=== PATIENT | female | born 1970 | race African-American/Black ===

== ENCOUNTER 2016-11-07 15:25 | Emergency (ER) | payer BC ==
[2016-11-07 15:42] VITALS: BP 144/91; PULSE 86; TEMP 98; BMI 28.3
[2016-11-07] MEDS ORDERED: IBUPROFEN 400 MG TABLET (FP) PO ONE ×2 (16:25→16:28)
--- NOTE | 2016-11-07 16:35 | PDOC ---
History of Present Illness - General Chief Complaint: Injury Stated Complaint: SWOLLEN MID FINGER Time Seen by Provider: 11/07/16 16:12 History Source: Patient - History of Present Illness Occurred: reports: yesterday Upper Extremity Pain Location: right: 3rd finger Method of Injury: reports: direct blow Past History - Past Medical History Allergies/Adverse Reactions: Allergies Allergy/AdvReac Type Severity Reaction Status Date / Time Cephalosporins Allergy Verified 11/07/16 15:38 Home Medications: Ambulatory Orders NK [No Known Home Medication] 05/24/16 Thyroid Disease: No - Surgical History Abdominal Surgery: Yes (umb.hernia) - Family Disease History Family Disease History: Diabetes: Mother, [place]: Grandparents (ovarian cancer) - Immunization History Td Vaccination: Yes Immunization Up to Date: Yes - Psycho/Social/Smoking Cessation Hx Anxiety: No Suicidal Ideation: No Smoking Status: No Smoking History: Never smoked Years of Tobacco Use: 0 Have you smoked in the past 12 months: No Number of Cigarettes Smoked Daily: 0 Cigars Per Day: 0 Information on smoking cessation initiated: No Hx Alcohol Use: No Drug/Substance Use Hx: No Substance Use Type: None Review of Systems - Review of Systems Musculoskeletal: Yes: Joint Pain, Joint Swelling *Physical Exam - Vital Signs Last Vital Signs Temp Pulse Resp BP Pulse Ox 98.0 F 86 18 144/91 98 11/07/16 15:39 11/07/16 15:39 11/07/16 15:39 11/07/16 15:39 11/07/16 15:39 - Physical Exam General Appearance: Yes: Appropriately Dressed. No: Apparent Distress HEENT: positive: Normal Voice Neck: positive: Supple Respiratory/Chest: negative: Respiratory Distress Extremity: positive: Tender, Swelling (to PIPJ of R 3rd finger) Integumentary: positive: Dry, Warm Neurologic: positive: Fully Oriented, Alert, Normal Mood/Affect ED Treatment Course - RADIOLOGY Radiology Studies Ordered: Category Date Time Status FINGER(S) RIGHT [RAD] Stat Radiology 11/07/16 16:24 Ordered - Medications Given in the ED: ED Medications Discontinued Medications Generic Name Dose Route Start Last Admin Trade Name Freq PRN Reason Stop Dose Admin Ibuprofen 800 mg 11/07/16 16:25 11/07/16 16:28 Motrin - PO 11/07/16 16:26 800 mg ONCE ONE Administration Medical Decision Making - Medical Decision Making 11/07/16 16:30 46 yo F, no sig hx, here w/ pain and swelling to R 3rd finger s/p injury. 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 See exam Finger injury M/l sprain -r/o fx -pain control 11/07/16 17:31 Oblique, non-displaced fx to base of middle phalanx of R 3rd digit. Finger splint placed w/ orthopedic f/u *DC/Admit/Observation/Transfer Diagnosis at time of Disposition: Finger fracture, right Qualifiers: Encounter type: initial encounter Finger: middle finger Fracture type: closed Phalanx: middle Fracture alignment: nondisplaced Qualified Code(s): S62.652A - Nondisplaced fracture of medial phalanx of right middle finger, initial encounter for closed fracture - Discharge Dispostion Disposition: HOME Condition at time of disposition: Good - Patient Instructions Printed Discharge Instructions: DI for Finger Fracture Additional Instructions: Please keep splint in place and take motrin for pain Please follow up with Dr Mccallum in 1 week - Post Discharge Activity Work/School Note: Back to Work
== END 2016-11-07 17:54 | disposition home or self-care (01) ==
LOC: JERFT 15:25
DX: S62.652A Nondisplaced fracture of middle phalanx of right middle finger, initial encounter for closed fracture (principal); W22.8XXA Striking against or struck by other objects, initial encounter; Y93.89 Activity, other specified; Y92.118 Other place in children's home and orphanage as the place of occurrence of the external cause; Y99.0 Civilian activity done for income or pay
CPT/HCPCS: 73140-TC-RT; 99281-25

== ENCOUNTER 2016-12-09 15:58 | Emergency (ER) | payer BC ==
[2016-12-09 16:04] VITALS: BP 161/101; PULSE 90; TEMP 98.1; BMI 28.3
--- NOTE | 2016-12-09 16:06 | PDOC ---
History of Present Illness - General Chief Complaint: Urinary Problem Stated Complaint: URINARY SX Time Seen by Provider: 12/09/16 16:05 History Source: Patient Exam Limitations: No Limitations - History of Present Illness Travel History: No Initial Comments: 12/09/16 16:40 46y F rpresenting with complaints of urinary frequency, hesitency and mild dysuria since yesterday. Pt denies any fever/chills, back pain, abdominal pain , vaginal discharge, vaginal bleeding. Past History - Past Medical History Allergies/Adverse Reactions: Allergies Allergy/AdvReac Type Severity Reaction Status Date / Time Cephalosporins Allergy Verified 12/09/16 16:05 Home Medications: Ambulatory Orders Nitrofurantoin Monohyd/M-Cryst [Macrobid -] 100 mg PO BID #9 capsule 12/09/16 Phenazopyridine HCl [Pyridium] 100 mg PO BID #2 tablet 12/09/16 Thyroid Disease: No - Surgical History Abdominal Surgery: Yes (umb.hernia) - Family Disease History Family Disease History: Diabetes: Mother, [place]: Grandparents (ovarian cancer) - Immunization History Td Vaccination: Yes Immunization Up to Date: Yes - Psycho/Social/Smoking Cessation Hx Anxiety: No Suicidal Ideation: No Smoking Status: No Smoking History: Never smoked Years of Tobacco Use: 0 Have you smoked in the past 12 months: No Number of Cigarettes Smoked Daily: 0 Cigars Per Day: 0 Information on smoking cessation initiated: No Hx Alcohol Use: No Drug/Substance Use Hx: No Substance Use Type: None Review of Systems - Review of Systems Able to Perform ROS?: Yes Comments:: 12/09/16 16:43 Constitutional - no reported Fever, Chills, HEENT: no reported vision changes, sore throat Respiratory: no reported cough, sob, hemoptysis Cardiac: no reported chest pain, palpitations, light headedness, leg swelling Abd/GI: no reported abd pain, nausea, vomiting, blood per rectum, melena, diarrhea : +dysuria, frequency, hesitency no reported discharge Musculskelatal - no reported back pain, joint swelling skin - no reported bruising, erythema, rash neurological: no reported headache, numbness, focal weakness, tingling, ataxia, hematologic: no reported anemia, easy bruising, easy bleeding *Physical Exam - Vital Signs Last Vital Signs Temp Pulse Resp BP Pulse Ox 98.1 F 90 18 161/101 100 12/09/16 15:58 12/09/16 15:58 12/09/16 15:58 12/09/16 15:58 12/09/16 15:58 - Physical Exam Comments: 12/09/16 16:44 GENERAL: The patient is awake, alert, and fully oriented, Nontoxic - in no acute distress. ENT: Normal voice, Moist mucous membranes. NECK: Normal range of motion, supple LUNGS: Breath sounds equal, clear to auscultation bilaterally. No wheezes, no rhonchi, no rales. HEART: Regular rate and rhythm, normal S1 and S2 without murmur, rub or gallop. ABDOMEN: Soft, nontender, normoactive bowel sounds. No guarding, no rebound. No CVA tenderness EXTREMITIES: Normal range of motion, no edema. NEUROLOGICAL: No facial assymetry, Normal speech, normal gait, moving all 4 extremities spontenously and symmetrically. Medical Decision Making - Medical Decision Making 12/09/16 16:46 suspect UTI will treat with macrobid and pyridum will dc with pmd fu return precautions were discussed I discussed the physical exam findings, ancillary test results and final diagnoses with the patient. I answered all of the patient's questions. The patient was satisfied with the care received and felt comfortable with the discharge plan and treatment plan. The patient will call their primary care physician within 24 hours to arrange follow-up and will return to the Emergency Department with any new, persistent or worsening symptoms. *DC/Admit/Observation/Transfer Diagnosis at time of Disposition: Urinary tract infection Qualifiers: Urinary tract infection type: acute cystitis Hematuria presence: with hematuria Qualified Code(s): N30.01 - Acute cystitis with hematuria - Discharge Dispostion Disposition: HOME Condition at time of disposition: Improved Admit: No - Prescriptions Prescriptions: Nitrofurantoin Monohyd/M-Cryst [Macrobid -] 100 mg PO BID #9 capsule Phenazopyridine HCl [Pyridium] 100 mg PO BID #2 tablet - Referrals Referrals: [facility] [Provider Group] - Patient Instructions Printed Discharge Instructions: DI for Urinary Tract Infection (UTI) Additional Instructions: Return to the emergency department immediately with ANY new, persistent or worsening symptoms including fever/chills, back pain, vomiting or other concerns. Take the antibiotics as prescribed. The Pyridium may turn your urine orange. You MUST call and follow up with your doctor in 4-5 days for further evaluation of your symptoms. Results were discussed with you. Please make sure your doctor reviews the results of your emergency evaluation.
[2016-12-09 16:26] LABS: URINE APPEARANCE Clear; URINE BILIRUBIN Negative (NEGATIVE); URINE BLOOD 2+ (NEGATIVE); URINE GLUCOSE (UA) Negative (NEGATIVE); URINE KETONE Negative (NEGATIVE); URINE NITRITE Negative (NEGATIVE); URINE PROTEIN Negative (NEGATIVE)
[2016-12-09 16:29] LABS: URINE COLOR YELLOW; URINE LEUK ESTERASE 2+ (NEGATIVE)
[2016-12-09] MEDS ORDERED: PHENAZOPYRIDINE HCL 100 MG TABLET (FP) PO ONE (16:42)
[2016-12-09] MEDS ORDERED: PHENAZOPYRIDINE HCL 100 MG TABLET (FP) ONE (16:45)
[2016-12-09] MEDS ORDERED: NITROFURANTOIN MACROCRYSTAL 50 MG CAPSULE (FP) PO SCH (16:45)
[2016-12-09] MEDS ORDERED: NITROFURANTOIN MACROCRYSTAL 50 MG CAPSULE (FP) ONE (16:45)
[2016-12-09 20:29] LABS: URINE BACTERIA FEW /hpf (NEGATIVE)
== END 2016-12-09 16:55 | disposition home or self-care (01) ==
LOC: FER 15:58
DX: N30.01 Acute cystitis with hematuria (principal)
CPT/HCPCS: 81003; 81015; 84703; 99282-25

== ENCOUNTER 2017-04-28 19:08 | Emergency (ER) | payer BC ==
[2017-04-28 19:16] VITALS: BP 118/84; PULSE 103; TEMP 98.3; BMI 27.8
--- NOTE | 2017-04-28 20:16 | PDOC ---
History of Present Illness - General Chief Complaint: Cold Symptoms Stated Complaint: COLD SYMPTOMS Time Seen by Provider: 04/28/17 19:23 - History of Present Illness Initial Comments: 04/28/17 20:00 CHIEF COMPLAINT: cold symptoms HISTORY OF PRESENT ILLNESS: 46 yo F with hx of HTN presents to [facility] with cough, congestion, sneezing, sore throat, and unrelated "bump on vagina." Patient states she received a flu and pneumonia shot last week and has been feeling "sick" since. Patient PAST MEDICAL HISTORY: Denies past medical history FAMILY HISTORY: Denies SOCIAL HISTORY: Denies tobacco, alcohol, illicit drug use. SURGICAL HISTORY: Denies ALLERGIES: cephalasporins REVIEW OF SYSTEMS General/Constitutional: Denies fever or chills. Denies weakness, weight change. HEENT: Denies change in vision. Denies ear pain or discharge. Denies sore throat. Cardiovascular: Denies chest pain or shortness of breath. Respiratory: Denies cough, wheezing, or hemoptysis. Gastrointestinal: Denies nausea, vomiting, diarrhea or constipation. Denies rectal bleeding. Genitourinary: Denies dysuria, frequency, or change in urination. Musculoskeletal: Denies joint or muscle swelling or pain. Denies neck or back pain. Skin and breasts: Denies rash or easy bruising. PHYSICAL EXAM General Appearance: Well-appearing, appropriately dressed. No apparent distress. HEENT: Rhinorrhea, congestion. EOMI, PERRLA. No conjunctival pallor. No photophobia, scleral icterus. Respiratory/Chest: Lungs CTAB. Cardiovascular: RRR. S1, S2. Gastrointestinal/Abdominal: Normal bowel sounds. Abdomen soft, non-distended. No tenderness or rebound tenderness. No organomegaly, pulsatile mass, guarding , hernia, hepatomegaly, splenomegaly. Musculoskeletal/Extremities: Normal inspection. FROM of all extremities, normal capillary refill. Pelvis Stable. No CVA tenderness. No tenderness to extremities, pedal edema, swelling, erythema or deformity. Integumentary: 1cm x 1 cm indurated nodule to left labia, no fluctuance, erythema, discharge. Appropriate color, dry, warm. No cyanosis, erythema, jaundice or rash Neurologic: [place] aide II-XII intact. Fully oriented, alert. Appropriate mood/affect. Motor strength 5/5. No appreciable EOM palsy, facial droop or sensory deficit. Past History - Past Medical History Allergies/Adverse Reactions: Allergies Allergy/AdvReac Type Severity Reaction Status Date / Time Cephalosporins Allergy Verified 04/28/17 19:09 Home Medications: Ambulatory Orders Hydrochlorothiazide 25 mg PO ASDIR 04/28/17 Pseudoephedrine HCl [Sudafed 12 Hour] 120 mg PO BID #14 tablet.er 04/28/17 Sulfamethoxazole/Trimethoprim [Bactrim Ds -] 1 tab PO BID #14 tablet 04/28/17 COPD: No HTN: Yes Thyroid Disease: No - Surgical History Abdominal Surgery: Yes (umb.hernia) - Family Disease History Family Disease History: Diabetes: Mother, [place]: Grandparents (ovarian cancer) - Immunization History Td Vaccination: Yes Immunization Up to Date: Yes - Suicide/Smoking/Psychosocial Hx Smoking Status: No Smoking History: Never smoked Years of Tobacco Use: 0 Have you smoked in the past 12 months: No Number of Cigarettes Smoked Daily: 0 Cigars Per Day: 0 Hx Alcohol Use: No Drug/Substance Use Hx: No Substance Use Type: None *Physical Exam - Vital Signs Last Vital Signs Temp Pulse Resp BP Pulse Ox 98.3 F 103 H 18 118/84 96 04/28/17 19:10 04/28/17 19:10 04/28/17 19:10 04/28/17 19:10 04/28/17 19:10 Medical Decision Making - Medical Decision Making 04/28/17 20:16 46 yo F with hx of HTN presents to [facility] with cough, congestion, sneezing, sore throat, and unrelated "bump on vagina." -Bactrim, warm compresses for folliculitis not drainable at this time -flu, strep swab *DC/Admit/Observation/Transfer Diagnosis at time of Disposition: Folliculitis, Viral upper respiratory illness - Discharge Dispostion Disposition: HOME Condition at time of disposition: Stable Admit: No - Prescriptions Prescriptions: Pseudoephedrine HCl [Sudafed 12 Hour] 120 mg PO BID #14 tablet.er Sulfamethoxazole/Trimethoprim [Bactrim Ds -] 1 tab PO BID #14 tablet - Referrals - Patient Instructions Printed Discharge Instructions: DI for Skin Abscess, DI for Folliculitis, DI for Viral Upper Respiratory Infection -- Adult Additional Instructions: Please take medications as prescribed. As discussed, please soak the skin infection 3-4 times daily, for at least 15 minutes each time, in warm water. If you develop fever, chills, nausea, vomiting, or diarrhea, or any new or worsening symptoms, please return to the ER. - Post Discharge Activity
== END 2017-04-28 20:30 | disposition home or self-care (01) ==
LOC: JERFT 19:08
DX: J06.9 Acute upper respiratory infection, unspecified (principal); L73.9 Follicular disorder, unspecified; I10 Essential (primary) hypertension
CPT/HCPCS: 87804; 99281-25

== ENCOUNTER 2017-05-09 23:15 | Emergency (ER) | payer BC ==
[2017-05-10 00:49] VITALS: BP 137/98; PULSE 72; TEMP 98.1; BMI 25.7
--- NOTE | 2017-05-10 02:34 | PDOC ---
History of Present Illness - General History Source: Patient Exam Limitations: No Limitations - History of Present Illness Initial Comments: 05/10/17 02:46 The patient is a 46 year old female, with a significant past medical history of pre-HTN, who presents to the emergency department with, chest pain radiating to her left arm for a few days. 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 She denies recent fevers, chills, headache or dizziness. She denies recent nausea, vomit, diarrhea or constipation. She denies recent dysuria, frequency, urgency or hematuria. She denies recent shortness of breath. Allergies: Cephalosporins Past surgical history: None reported. Social history: Nonsmoker. Denies EtOH use and recreational drug use. <Delphine Calderón - Last Filed: 05/10/17 02:45> <Layla Rios - Last Filed: 05/10/17 05:43> - General Chief Complaint: Chest Pain Stated Complaint: CHEST PAIN Time Seen by Provider: 05/10/17 00:48 Past History <Delphine Calderón - Last Filed: 05/10/17 02:45> - Past Medical History COPD: No HTN: Yes Thyroid Disease: No - Surgical History Abdominal Surgery: Yes (umb.hernia) - Family Disease History Family Disease History: Diabetes: Mother, [place]: Grandparents (ovarian cancer) - Immunization History Td Vaccination: Yes Immunization Up to Date: Yes - Suicide/Smoking/Psychosocial Hx Smoking Status: No Smoking History: Never smoked Years of Tobacco Use: 0 Have you smoked in the past 12 months: No Number of Cigarettes Smoked Daily: 0 Cigars Per Day: 0 Information on smoking cessation initiated: No Hx Alcohol Use: No Drug/Substance Use Hx: No Substance Use Type: None <Layla Rios - Last Filed: 05/10/17 05:43> - Past Medical History Allergies/Adverse Reactions: Allergies Allergy/AdvReac Type Severity Reaction Status Date / Time Cephalosporins Allergy Verified 05/10/17 00:50 Home Medications: Ambulatory Orders Hydrochlorothiazide 25 mg PO ASDIR 04/28/17 Review of Systems - Review of Systems Able to Perform ROS?: Yes Comments:: 05/10/17 02:46 GENERAL/CONSTITUTIONAL: No fever or chills. No weakness. HEAD, EYES, EARS, NOSE AND THROAT: No change in vision. No ear pain or discharge. No sore throat. CARDIOVASCULAR: +Chest pain. No shortness of breath. RESPIRATORY: No cough, wheezing, or hemoptysis. GASTROINTESTINAL: No nausea, vomiting, diarrhea or constipation. GENITOURINARY: No dysuria, frequency, or change in urination. MUSCULOSKELETAL: No joint or muscle swelling or pain. No neck or back pain. SKIN: No rash EXTREMITIES: +Left arm pain. NEUROLOGIC: No headache, vertigo, loss of consciousness, or change in strength/ sensation. ENDOCRINE: No increased thirst. No abnormal weight change. HEMATOLOGIC/LYMPHATIC: No anemia, easy bleeding, or history of blood clots. ALLERGIC/IMMUNOLOGIC: No hives or skin allergy. All Other Systems: Reviewed and Negative <Delphine Calderón - Last Filed: 05/10/17 02:45> *Physical Exam - Vital Signs Last Vital Signs Temp Pulse Resp BP Pulse Ox 98.1 F 72 18 137/98 100 05/10/17 00:40 05/10/17 00:40 05/10/17 00:40 05/10/17 00:40 05/10/17 00:40 - Physical Exam Comments: 05/10/17 02:46 GENERAL: Awake, alert, and fully oriented, in no acute distress HEAD: No signs of trauma EYES: PERRLA, EOMI, sclera anicteric, conjunctiva clear ENT: Auricles normal inspection, hearing grossly normal, nares patent, oropharynx clear without exudates. Moist mucosa NECK: Normal ROM, supple, no lymphadenopathy, JVD, or masses LUNGS: Breath sounds equal, clear to auscultation bilaterally. No wheezes, and no crackles HEART: Regular rate and rhythm, normal S1 and S2, no murmurs, rubs or gallops ABDOMEN: Soft, nontender, normoactive bowel sounds. No guarding, no rebound. No masses EXTREMITIES: Normal range of motion, no edema. No clubbing or cyanosis. No cords, erythema, or tenderness NEUROLOGICAL: Cranial nerves II through XII grossly intact. Normal speech, normal gait SKIN: Warm, Dry, normal turgor, no rashes or lesions noted. <Delphine Calderón - Last Filed: 05/10/17 02:45> - Vital Signs Last Vital Signs Temp Pulse Resp BP Pulse Ox 98.1 F 72 18 137/98 100 05/10/17 00:40 05/10/17 00:40 05/10/17 00:40 05/10/17 00:40 05/10/17 00:40 <Layla Rios - Last Filed: 05/10/17 05:43> ED Treatment Course - LABORATORY CBC & Chemistry Diagram: 05/10/17 02:39 05/10/17 02:39 <Layla Rios - Last Filed: 05/10/17 05:43> Medical Decision Making - Medical Decision Making 05/10/17 05:41 Pt comes with HTN; States that she has left arm pain that has been ongoing for a couple of days. Exam normal; labs normal; pt's BP is not ihgh enough for me to change her regimen at this time. Pt has no other complaints. She will follow with cardiology to consider other options/meds for treating her BP. <Layla Rios - Last Filed: 05/10/17 05:43> *DC/Admit/Observation/Transfer - Attestations Scribe Attestion: 05/10/17 02:46 Documentation prepared by Delphine Calderón, acting as medical secretary receptionist for Layla Rios MD. <Delphine Calderón - Last Filed: 05/10/17 02:45> - Discharge Dispostion Admit: No <Layla Rios - Last Filed: 05/10/17 05:43> Diagnosis at time of Disposition: Atypical chest pain - Discharge Dispostion Disposition: HOME Condition at time of disposition: Stable - Patient Instructions Printed Discharge Instructions: DI for Atypical Chest Pain
[2017-05-10 02:50] LABS: BASO % 0.5 % (0-2.0); EOS % 2.1 % (0-4.5); HEMATOCRIT 39.1 % (32.4-45.2); HEMOGLOBIN 13.1 GM/dL (10.7-15.3); LYMPH % 44.1 % (8-40); MCH 29.8 pg (25.7-33.7); MCHC 33.5 g/dl (32.0-36.0); MEAN CELL VOLUME 88.8 fl (80-96); MEAN PLT VOLUME 10.5 fl (7.5-11.1); MONO % 5.2 % (3.8-10.2); NEUT % 48.1 % (42.8-82.8); PLATELET COUNT 105 K/MM3 (134-434); RDW 13.7 % (11.6-15.6); WHITE BLOOD COUNT 7.2 K/mm3 (4.0-10.0)
[2017-05-10 03:13] LABS: ALBUMIN 3.5 g/dl (3.4-5.0); ANION GAP 7 (8-16); BILIRUBIN,TOTAL 0.4 mg/dL (0.2-1.0); BLOOD UREA NITROGEN 17 mg/dL (7-18); CALCIUM 8.5 mg/dL (8.5-10.1); CHLORIDE 105 mmol/L (98-107); CO2 27 mmol/L (21-32); CREATININE 0.9 mg/dL (0.55-1.02); GLUCOSE,RANDOM 96 mg/dL (74-106); POTASSIUM 4.2 mmol/L (3.5-5.1); SGOT/AST 14 U/L (15-37); SGPT/ALT 18 U/L (12-78); SODIUM 139 mmol/L (136-145); TOT PROT 6.6 g/dl (6.4-8.2)
[2017-05-10 03:15] LABS: ALK PHOS 59 U/L (45-117)
--- NOTE | 2017-05-13 15:14 | EKG ---
Test Reason : Blood Pressure : / mmHG Vent. Rate : 074 BPM Atrial Rate : 074 BPM P-R Int : 162 ms QRS Dur : 064 ms QT Int : 370 ms P-R-T Axes : 058 025 040 degrees QTc Int : 410 ms NORMAL SINUS RHYTHM NORMAL ECG WHEN COMPARED WITH ECG OF 01-APR-2016 15:44, NO SIGNIFICANT CHANGE WAS FOUND Confirmed by Mina Cross MD ([id number]) on 05/13/2017 3:14:03 PM Referred By: Confirmed By:Mina Cross MD
== END 2017-05-10 03:51 | disposition home or self-care (01) ==
LOC: JER 23:15
DX: R07.89 Other chest pain (principal); I10 Essential (primary) hypertension
CPT/HCPCS: 36415; 80053; 82550; 84484; 85025; 93005; 93010; 99283-25

== ENCOUNTER 2017-11-30 12:31 | Emergency (ER) | payer BC ==
[2017-11-30 12:46] VITALS: BP 131/81; PULSE 103; TEMP 98.9
[2017-11-30 12:48] VITALS: BMI 27.4
--- NOTE | 2017-11-30 12:58 | PDOC ---
History of Present Illness - General Chief Complaint: Pain Stated Complaint: ABDOMINAL PAIN Time Seen by Provider: 11/30/17 12:58 - History of Present Illness Initial Comments: 11/30/17 13:51 Risa Chong is a 47yo woman with a PMH of borderline HTN, umbilical hernia s/p repair, recent breast augmentation on 11/09/17 who presents complaining of diarrhea for one week. She reports that she normally has about 2 bowel movements per week. However, starting last Friday, she reports that she has had a bowel movement an hour after she eats, every time she eats. She has been having multiple bowel movements per day. She has been able to eat normally and continued to drink plenty of water. She has not had any sick contacts or diet changes recently. She denies nausea, vomiting, fever/chills, malaise, body aches, or abdominal pain. Ms Chong did have a 3 day course of antibiotics following her recent breast augmentation but was not hospitalized following the surgery. She reports that she was initially not going to come in for evaluation, but decided to come in to day after looking up diarrhea online. She was concerned that she might have a problem with her enzymes or become dehydrated. Ms Chong did not attempt any treatment at home or see her primary physician during the week. Past History - Past Medical History Allergies/Adverse Reactions: Allergies Allergy/AdvReac Type Severity Reaction Status Date / Time Cephalosporins Allergy Verified 11/30/17 15:57 hydrochlorothiazide Allergy Verified 11/30/17 15:57 Home Medications: Ambulatory Orders Amlodipine Besylate 5 mg PO DAILY 10/20/17 Loperamide HCl [Imodium -] 2 mg PO Q8H PRN #21 capsule 11/30/17 COPD: No HTN: Yes Thyroid Disease: No - Surgical History Abdominal Surgery: Yes (umb.hernia) - Family Disease History Family Disease History: Diabetes: Mother, CA: Grandparents (ovarian cancer) - Immunization History Td Vaccination: Yes Immunization Up to Date: Yes - Suicide/Smoking/Psychosocial Hx Smoking Status: No Smoking History: Never smoked Years of Tobacco Use: 0 Have you smoked in the past 12 months: No Number of Cigarettes Smoked Daily: 0 Cigars Per Day: 0 Hx Alcohol Use: No Drug/Substance Use Hx: No Substance Use Type: None Review of Systems - Review of Systems Comments:: General: No fevers, no chills, no weight or appetite change, no malaise HEENT: No changes in vision, no changes in hearing, no congestion, no sore throat CV: No chest pain, no palpitations, no LE edema Pulm: No SOB, no cough, no wheezing GI: See HPI : No frequency, no urgency, no dysuria Musc: No back pain, no joint swelling, no recent injury Skin: No rash, no lesions, no erythema Endo: No excessive thirst, no heat/cold intolerance Heme: No unusual bruising or bleeding, no swollen glands Neuro: No syncope, no numbness/tingling, no focal weakness Vasc: No claudication Psych: No recent change in mood, no SI or HI *Physical Exam - Vital Signs Last Vital Signs Temp Pulse Resp BP Pulse Ox 98.9 F 103 H 20 131/81 99 11/30/17 12:36 11/30/17 12:36 11/30/17 12:36 11/30/17 12:36 11/30/17 12:36 - Physical Exam Comments: General: Comfortable, no acute distress HEENT: PERRL, EOMI, MMM, voice normal, normal neck ROM, no LAD Cards: RRR, no murmur appreciated Pulm: Comfortable on room air, clear to auscultation bilaterally Abd: Soft, nontender, nondistended : No CVA tenderness Ext: Atraumatic. No LE edema. ROM intact. Strength 5/5 and equal bilaterally Vasc: Extremities WWP. Palpable radial and pedal pulses bilaterally Skin: Multiple tatoos. Well healling surgical incisions. No rashes, lesions, bruises noted Neuro: A&Ox3, CN grossly intact, normal speech, motor/sensory grossly intact and symmetric Psych: Mood appropriate to situation ED Treatment Course - LABORATORY CBC & Chemistry Diagram: 11/30/17 13:30 11/30/17 13:30 Medical Decision Making - Medical Decision Making 11/30/17 13:58 Risa Chong is a 47yo woman with a history of HTN who presented to the ED today complaining of multiple soft stools daily for the past week. She reports that she has a bowel movement about an hour after every time she eats, which is much different than her typical twice weekly bowel movements. She did have a recent surgical procedure with 3 days of antibiotics but did not have a hospital stay that would increase her risk for cdiff. She has not had any s/s of systemic infection including fever, chills, body aches, malaise. She has not had any nausea or vomiting, and she has been able to eat and drink normally throughout the week. Her physical exam was entirely benign. - CBC, CMP, lipase, stool O&P, stool culture, cdiff sent - Immodium for symptom relief - NS bolus 1L for hydration, tachycardia 11/30/17 17:21 - Reassessed. HR down to ~85 after fluid bolus - Feels well. Able to eat [employer] without any difficulty - Most likely viral enteritis. Discussed following up with primary physician or at the resident clinic at [facility] to get culture results. Discussed with Dr Moss. *DC/Admit/Observation/Transfer Diagnosis at time of Disposition: Viral enteritis - Discharge Dispostion Disposition: HOME - Referrals Referrals: Shon Tavera MD [Staff Physician] - - Patient Instructions Printed Discharge Instructions: Diarrhea (Alternative Therapy), DI for Diarrhea and Traveler's Diarrhea -- Adult Additional Instructions: Discharge Instructions: - You were seen in the ED for diarrhea for the past week - You were rehydrated and had blood tests completed. The tests indicated that you might have a mild infection. Usually, diarrheal infections are viral. However, some tests were sent to determine if there is unusual bacteria in your stool. These tests will not be completed for several days. You will need to call the hospital to get the results of your stool tests. - You have been referred to the resident clinic at [facility]. You can make an appointment for clinic to get your test results. If you would prefer to see your regular physician, make sure that you call for the test results. - Please see the attached information on diarrhea for additional information - Post Discharge Activity
[2017-11-30 13:42] LABS: HEMOGLOBIN 12.9 GM/dL (10.7-15.3); MCH 29.2 pg (25.7-33.7); MEAN CELL VOLUME 88.6 fl (80-96); MEAN PLT VOLUME 8.8 fl (7.5-11.1); PLATELET COUNT 196 K/MM3 (134-434); WHITE BLOOD COUNT 11.6 K/mm3 (4.0-10.0)
[2017-11-30 14:04] LABS: ALBUMIN 3.7 g/dl (3.4-5.0); ANION GAP 5 (8-16); BLOOD UREA NITROGEN 11 mg/dL (7-18); CALCIUM 9.1 mg/dL (8.5-10.1); CHLORIDE 104 mmol/L (98-107); CO2 30 mmol/L (21-32); CREATININE 0.9 mg/dL (0.55-1.02); GLUCOSE,RANDOM 80 mg/dL (74-106); LIPASE 117 U/L (73-393); POTASSIUM 3.9 mmol/L (3.5-5.1); SGOT/AST 18 U/L (15-37); SGPT/ALT 21 U/L (12-78); SODIUM 139 mmol/L (136-145)
[2017-11-30 14:05] LABS: ALK PHOS 53 U/L (45-117); BILIRUBIN,TOTAL 0.9 mg/dL (0.2-1.0)
[2017-11-30] MEDS ORDERED: LOPERAMIDE HCL 2 MG CAPSULE PO ONE (14:57)
[2017-11-30] MEDS ORDERED: SODIUM CHLORIDE 0.9% 500 ML INFUS.BAG IV ONE (14:57)
[2017-11-30] MEDS ORDERED: LOPERAMIDE HCL 2 MG CAPSULE ONE (15:28)
--- NOTE | 2017-11-30 16:02 | PDOC ---
Attending Attestation - Resident Resident Name: SarithaVal - ED Attending Attestation I have performed the following: I have examined & evaluated the patient, The case was reviewed & discussed with the resident, I agree w/resident's findings & plan, Exceptions are as noted - HPI HPI: 11/30/17 15:58 47 yo F with no PMH presents to ED with diarrhea x 1 week. Pt reports watery brown stool several times a day. Denies F/C. Denies N/V. States that she has some mild cramping in her lower abdomen when she has to move her bowels but denies any pain currently. Pt denies any recent travel. States that she had breast augmentation 3 weeks ago and took abx for 5 days but has not been on any abx recently. - Physicial Exam PE: 11/30/17 16:01 "GENERAL: Awake, alert, and fully oriented, in no acute distress. HEAD: No signs of trauma EYES: PERRLA, EOMI, sclera anicteric, conjunctiva clear ENT: Auricles normal inspection, hearing grossly normal, nares patent, oropharynx clear without exudates. Moist mucosa NECK: Nontender, no stepoffs, Normal ROM, supple, no lymphadenopathy, JVD, or masses LUNGS: Breath sounds equal, clear to auscultation bilaterally. No wheezes, and no crackles HEART: Regular rate and rhythm, normal S1 and S2, no murmurs, rubs or gallops ABDOMEN: Soft, nontender, normoactive bowel sounds. No guarding, no rebound. No masses EXTREMITIES: Normal range of motion, no edema. No clubbing or cyanosis. No cords, erythema, or tenderness NEUROLOGICAL: Cranial nerves II through XII intact. 5/5 strength and sensation in all extremities, Normal speech, normal gait, normal cerebellar function SKIN: Warm, Dry, normal turgor, no rashes or lesions noted." - Medical Decision Making 11/30/17 16:01 47 F with diarrhea x 7 days. Abdomen benign. Pt with mild tachycardia in ED, likely 2/2 volume depletion. - Labs - Stool studies - IVF, imodium 11/30/17 17:26 Labs wnl Stool studies sent Repeat HR after 1L NS now 80s Pt is well appearing, with normal vitals. Clinically stable for DC at this time. I discussed the physical exam findings, ancillary test results and final diagnoses with the patient. I answered all of the patient's questions. The patient was satisfied with the care received and felt comfortable with the discharge plan and treatment plan. The patient agrees to follow up with the primary care physician within 24-72 hours.
--- NOTE | 2017-12-02 13:10 | PDOC ---
Patient Follow-up (Call Back) - Post ED Follow - Up Chief Complaint: Diarrhea Disposition at time of original discharge: HOME Reason for Call Back: Abnwl. Microbiology Signs/Symptoms Improved: No (Patient continues to have bloody diarrhea) - Disposition Additional Instructions/Notes: Stool culture prelim pos for non lactose fermenting gnb. Explained to patient that speciation is still pending. Rx Flagyl/Cipro in meantime. Counseled patient that she may need re-evaluation including CT if symptoms not improving. She verbalizes understanding.
== END 2017-11-30 17:47 | disposition home or self-care (01) ==
LOC: JER 12:31
DX: A08.4 Viral intestinal infection, unspecified (principal); B97.89 Other viral agents as the cause of diseases classified elsewhere; I10 Essential (primary) hypertension; Z98.890 Other specified postprocedural states
CPT/HCPCS: 36415; 80053; 83690; 85027; 87045; 87046; 87177; 87186; 87493; 99283-25

== ENCOUNTER 2018-07-06 08:02 | Emergency (ER) | payer BC ==
[2018-07-06 08:32] VITALS: BP 125/79; PULSE 78; TEMP 98.1; BMI 29.6
[2018-07-06 09:07] LABS: URINE APPEARANCE CLEAR; URINE BILIRUBIN NEGATIVE (<2.0 mg/dL); URINE COLOR YELLOW; URINE GLUCOSE (UA) NEGATIVE (NEGATIVE); URINE KETONE NEGATIVE (NEGATIVE); URINE LEUK ESTERASE NEGATIVE (NEGATIVE); URINE NITRITE POSITIVE (NEGATIVE); URINE PROTEIN NEGATIVE (NEGATIVE); URINE UROBILINOGEN NEGATIVE mg/dL (0.2-1.0)
--- NOTE | 2018-07-06 09:19 | PDOC ---
History of Present Illness - General Chief Complaint: Urinary Problem Stated Complaint: PAINFUL URINE Time Seen by Provider: 07/06/18 08:42 History Source: Patient Exam Limitations: Clinical Condition - History of Present Illness Initial Comments: 07/06/18 09:17 Patient with history of hypertension presented with complaint of one-week history of dysuria, foul urine and right lower flank pain which she describes as cramping pain. Patient reported painful to urinate despite drinking a lot of water. Patient is sexually active with one partner and uses an IUD for control. Denies fever, chills, abdominal pain, nausea or vomiting. Denies any other symptoms Timing/Duration: 1 week Past History - Past Medical History Allergies/Adverse Reactions: Allergies Allergy/AdvReac Type Severity Reaction Status Date / Time Cephalosporins Allergy Verified 07/06/18 08:28 hydrochlorothiazide Allergy Verified 07/06/18 08:28 Home Medications: Ambulatory Orders Amlodipine Besylate 5 mg PO DAILY 10/20/17 Ciprofloxacin HCl [Cipro] 500 mg PO BID 5 Days #10 tablet 07/06/18 Phenazopyridine HCl [Pyridium] 100 mg PO TID 2 Days #3 tablet 07/06/18 COPD: No DVT: No HTN: Yes Thyroid Disease: No - Surgical History Abdominal Surgery: Yes (umb.hernia) - Family Disease History Family Disease History: Diabetes: Mother, CA: Grandparents (ovarian cancer) - Immunization History Td Vaccination: Yes Immunization Up to Date: Yes - Suicide/Smoking/Psychosocial Hx Smoking Status: No Smoking History: Never smoked Years of Tobacco Use: 0 Have you smoked in the past 12 months: No Number of Cigarettes Smoked Daily: 0 Cigars Per Day: 0 Information on smoking cessation initiated: No Hx Alcohol Use: No Drug/Substance Use Hx: No Substance Use Type: None Review of Systems - Review of Systems Able to Perform ROS?: Yes Is the patient limited Thai proficient: No Constitutional: No: Chills, Fever, Weakness HEENTM: No: Symptoms Reported Respiratory: No: Symptoms reported Cardiac (ROS): No: Symptoms Reported ABD/GI: No: Symptoms Reported, Nausea, Vomiting : Yes: See HPI, Burning, Dysuria, Frequency, Flank Pain (right), Incontinence , Urgency. No: Discharge, Hematuria, Pain Musculoskeletal: Yes: See HPI, Back Pain (right lower back) All Other Systems: Reviewed and Negative *Physical Exam - Vital Signs Last Vital Signs Temp Pulse Resp BP Pulse Ox 98.1 F 78 17 125/79 99 07/06/18 08:10 07/06/18 08:10 07/06/18 08:10 07/06/18 08:10 07/06/18 08:10 - Physical Exam Comments: 07/06/18 09:53 GENERAL: Well developed, well nourished. Awake and alert. No acute distress. NECK: Supple. Full ROM. CARDIOVASCULAR: Regular rate and rhythm. No murmurs, rubs, or gallops. Distal pulses are 2+ and symmetric. PULMONARY: No evidence of respiratory distress. Lungs clear to auscultation bilaterally. No wheezing, rales or rhonchi. ABDOMINAL: Soft. Non-tender. Non-distended. No rebound or guarding. No organomegaly. Normoactive bowel sounds. MUSCULOSKELETAL : Mild right lateral flank and lower paravertebral muscle pain over lumbar region.Normal range of motion at all joints. No CVA tenderness bilateral. SKIN: Warm and dry. Normal capillary refill. No rashes. NEUROLOGICAL: Alert, awake, appropriate. Gait is normal without ataxia. PSYCHIATRIC: Cooperative. Good eye contact. Appropriate mood General Appearance: Yes: Nourished, Appropriately Dressed. No: Apparent Distress Moderate Sedation - Procedure Monitoring Vital Signs: Procedure Monitoring Vital Signs Temperature 98.1 F 07/06/18 08:10 Pulse Rate 78 07/06/18 08:10 Respiratory Rate 17 07/06/18 08:10 Blood Pressure 125/79 07/06/18 08:10 O2 Sat by Pulse Oximetry (%) 99 07/06/18 08:10 Medical Decision Making - Medical Decision Making 07/06/18 09:54 Patient with history of hypertension presented with complaint of one week history of dysuria, right posterior flank pain, burning with urination or urinary frequency. Exam significant for mild tenderness to lateral aspect of right flank and lower lumbar region. Negative CVA tenderness bilateral. Urine test ordered. UA, urine culture and urine gonorrhea and chlamydia tests ordered. Spiral CT ordered to rule out kidney stone. Treat on imaging and lab results 07/06/18 10:14 UA shows positive nitrates otherwise normal. Urine test negative. Spiral CT pending to rule out kidney stone. 07/06/18 10:[address] with no acute pathology. CT shows no renal kidney stones. Patient is stable for outpatient management. For cystitis with urology follow-up as needed pending urine culture results. *DC/Admit/Observation/Transfer Diagnosis at time of Disposition: Dysuria, Right flank discomfort - Discharge Dispostion Disposition: HOME Condition at time of disposition: Stable Decision to Admit order: No - Prescriptions Prescriptions: Ciprofloxacin HCl [Cipro] 500 mg PO BID 5 Days #10 tablet Phenazopyridine HCl [Pyridium] 100 mg PO TID 2 Days #3 tablet - Referrals Referrals: Wan Anderson MD., MD [Staff Physician] - - Patient Instructions Printed Discharge Instructions: DI for Dysuria -- Adult Additional Instructions: CAT scan shows no kidney stones. Take medication as prescribed. Increase fluid intake. Follow-up referred neurology as needed if symptoms does not improve in 4 days. - Post Discharge Activity
[2018-07-06 11:04] LABS: EPI CELLS FEW /HPF (FEW); URINE BACTERIA RARE /hpf (NONE SEEN); URINE MUCUS RARE
== END 2018-07-06 11:00 | disposition home or self-care (01) ==
LOC: JERFT 08:02
DX: N30.00 Acute cystitis without hematuria (principal); I10 Essential (primary) hypertension
CPT/HCPCS: 36415; 74176-TC; 81003; 81015; 84703; 87086; 87186; 87491; 87591; 99281-25

== ENCOUNTER 2018-09-27 07:21 | Emergency (ER) | payer BC | END 2018-09-27 09:54 | disposition home or self-care (01) | LOC: FER 07:21 ==

== ENCOUNTER 2019-05-03 08:22 | Emergency (ER) | payer BC ==
[2019-05-03 08:37] VITALS: BMI 29.2
--- NOTE | 2019-05-03 10:19 | PDOC ---
History of Present Illness - General Chief Complaint: Shortness of Breath Stated Complaint: SOB Time Seen by Provider: 05/03/19 09:38 - History of Present Illness Initial Comments: HPI: 48yo F with PMH of HTN and anxiety presenting with chest pain. The chest "tightness" started at 6:30am while she was sleeping and was rated 6/10 at that time but has since resolved. Denies nausea, vomiting, diaphoresis, or shortness of breath. The pain does not radiate. It is not palpable or pleuritic. She has had pain like this before, namely associated with her anxiety. No hemoptysis, no recent surgical history, no recent immobilization, no hormone use, no history of DVT or PE. States she had a cardiac evaluation including treadmill stress test and ECHO about two years ago for pre-surgical clearance for a breast augmentation procedure. Denies fever or chills. PCP: Dr. Vivi Marcus Sex Offender Treatment Professional: Dr. Richardson (in [place]) ROS: Constitutional: no fever, no chills HEENT: no throat pain, no dysphagia Cardiovascular: +chest pain, no palpitations Respiratory: no cough, no shortness of breath Gastrointestinal: no abdominal pain, no nausea Genitourinary: no dysuria, no hematuria Musculoskeletal: no myalgia, no arthralgia Skin: no rash, no itching Neurologic: no headache, no weakness PE: General: Awake, alert, and fully oriented, in no acute distress Head: No signs of trauma Eyes: EOMI, sclera anicteric ENT: Moist mucus membranes Neck: Normal ROM, supple Lungs: Lungs clear, Normal breath sounds Cardio: Regular rhythm, S1 and S2 present Abdomen: Soft, nontender Extremities: Normal range of motion, Distal pulses present. No calf tenderness SKIN: Warm, Dry, normal turgor Neurologic: Cranial nerves II through XII grossly intact. Normal speech ED Course/MDM: DDX including but not limited to ACS, PE, PNA, anemia, metabolic derangement Labs, EKG, CXR 05/03/19 10:14 CBC WBC 10.8 K/mm3 (4.0-10.0) H 05/03/19 10:20 RBC 4.66 M/mm3 (3.60-5.2) 05/03/19 10:20 Hgb 13.8 GM/dL (10.7-15.3) 05/03/19 10:20 Hct 42.2 % (32.4-45.2) 05/03/19 10:20 MCV 90.5 fl (80-96) 05/03/19 10:20 MCH 29.5 pg (25.7-33.7) 05/03/19 10:20 MCHC 32.6 g/dl (32.0-36.0) 05/03/19 10:20 RDW 14.7 % (11.6-15.6) 05/03/19 10:20 Plt Count 120 K/MM3 (134-434) L D 05/03/19 10:20 MPV 10.3 fl (7.5-11.1) D 05/03/19 10:20 Absolute Neuts (auto) 7.6 K/mm3 (1.5-8.0) 05/03/19 10:20 Neutrophils % 70.5 % (42.8-82.8) D 05/03/19 10:20 Lymphocytes % 21.2 % (8-40) D 05/03/19 10:20 Monocytes % 5.1 % (3.8-10.2) 05/03/19 10:20 Eosinophils % 2.7 % (0-4.5) 05/03/19 10:20 Basophils % 0.5 % (0-2.0) 05/03/19 10:20 Nucleated RBC % 0 % (0-0) 05/03/19 10:20 Mild leukocytosis CMP Sodium 142 mmol/L (136-145) 05/03/19 10:20 Potassium 4.0 mmol/L (3.5-5.1) 05/03/19 10:20 Chloride 105 mmol/L (98-107) 05/03/19 10:20 Carbon Dioxide 30 mmol/L (21-32) 05/03/19 10:20 Anion Gap 7 MMOL/L (8-16) L 05/03/19 10:20 BUN 10.4 mg/dL (7-18) 05/03/19 10:20 Creatinine 1.2 mg/dL (0.55-1.3) 05/03/19 10:20 Est GFR (CKD-EPI)AfAm 61.89 05/03/19 10:20 Est GFR (CKD-EPI)NonAf 53.40 05/03/19 10:20 Random Glucose 84 mg/dL (74-106) 05/03/19 10:20 Calcium 9.1 mg/dL (8.5-10.1) 05/03/19 10:20 Total Bilirubin 0.9 mg/dL (0.2-1) 05/03/19 10:20 AST 14 U/L (15-37) L 05/03/19 10:20 ALT 21 U/L (13-61) 05/03/19 10:20 Alkaline Phosphatase 55 U/L (45-117) 05/03/19 10:20 Troponin I < 0.02 ng/ml (0.00-0.05) 05/03/19 10:20 Total Protein 6.5 g/dl (6.4-8.2) 05/03/19 10:20 Albumin 3.7 g/dl (3.4-5.0) 05/03/19 10:20 Electrolytes unremarkable Cr normal No transaminitis Tpn undetectable EKG: rate 81, QTc 429, NSR, no significant change from previous EKG 09/25/18 Patient feeling better To follow up with PCP Return precautions Stable for discharge 05/03/19 11:44 CXR as read by radiology: " EXAM#: TYPE/EXAM: RESULT: [id number] RAD/CHEST PA LAT Chest: Chest pain 2 views of the chest reveal dense breast soft tissues, clear lungs, normal mediastinum and sharp angles. The bones appear intact. The dense breast soft tissues or from breast implants. Since 2018, there is no change of an adverse nature. Correlation recommended. Reported By: Omid Knott MD 05/03/19 1119 " Past History - Past Medical History Allergies/Adverse Reactions: Allergies Allergy/AdvReac Type Severity Reaction Status Date / Time Cephalosporins Allergy Verified 05/03/19 08:37 hydrochlorothiazide Allergy Verified 05/03/19 08:37 Home Medications: Ambulatory Orders Amlodipine Besylate 5 mg PO DAILY 10/20/17 COPD: No DVT: No HTN: Yes Thyroid Disease: No - Surgical History Abdominal Surgery: Yes (umb.hernia) - Immunization History Td Vaccination: Yes Immunization Up to Date: Yes - Psycho Social/Smoking Cessation Hx Smoking Status: No Smoking History: Never smoked Years of Tobacco Use: 0 Have you smoked in the past 12 months: No Number of Cigarettes Smoked Daily: 0 Cigars Per Day: 0 Hx Alcohol Use: No Drug/Substance Use Hx: No Substance Use Type: None *Physical Exam - Vital Signs Last Vital Signs Temp Pulse Resp BP Pulse Ox 97.9 F 85 18 123/87 99 05/03/19 08:29 05/03/19 09:57 05/03/19 09:57 05/03/19 09:57 05/03/19 09:57 ED Treatment Course - LABORATORY CBC & Chemistry Diagram: 05/03/19 10:20 05/03/19 10:20 - RADIOLOGY Radiology Studies Ordered: Category Date Time Status CHEST PA & LAT [RAD] Stat Radiology 05/03/19 10:01 Ordered Discharge - Discharge Information Problems reviewed: Yes Clinical Impression/Diagnosis: Atypical chest pain Condition: Fair Disposition: HOME - Follow up/Referral - Patient Discharge Instructions Patient Printed Discharge Instructions: DI for Atypical Chest Pain Additional Instructions: Follow-up with your doctor within 1 week. Return to the ED for any severe worsening symptoms or for any concerns. - Post Discharge Activity
[2019-05-03 10:47] LABS: BASO % 0.5 % (0-2.0); EOS % 2.7 % (0-4.5); HEMATOCRIT 42.2 % (32.4-45.2); HEMOGLOBIN 13.8 GM/dL (10.7-15.3); LYMPH % 21.2 % (8-40); MCH 29.5 pg (25.7-33.7); MCHC 32.6 g/dl (32.0-36.0); MEAN CELL VOLUME 90.5 fl (80-96); MEAN PLT VOLUME 10.3 fl (7.5-11.1); MONO % 5.1 % (3.8-10.2); NEUT % 70.5 % (42.8-82.8); PLATELET COUNT 120 K/MM3 (134-434); RBC 4.66 M/mm3 (3.60-5.2); RDW 14.7 % (11.6-15.6); WHITE BLOOD COUNT 10.8 K/mm3 (4.0-10.0)
--- NOTE | 2019-05-03 11:00 | EKG ---
Test Reason : Blood Pressure : / mmHG Vent. Rate : 081 BPM Atrial Rate : 081 BPM P-R Int : 168 ms QRS Dur : 076 ms QT Int : 370 ms P-R-T Axes : 080 064 059 degrees QTc Int : 429 ms NORMAL SINUS RHYTHM BIATRIAL ENLARGEMENT ABNORMAL ECG WHEN COMPARED WITH ECG OF 27-SEP-2018 08:23, NO SIGNIFICANT CHANGE WAS FOUND Confirmed by BREONNA MOORE MD ([id number]) on 05/03/2019 11:00:07 AM Referred By: Confirmed By:BREONNA MOORE MD
[2019-05-03 11:16] LABS: ALBUMIN 3.7 g/dl (3.4-5.0); BILIRUBIN,TOTAL 0.9 mg/dL (0.2-1); BLOOD UREA NITROGEN 10.4 mg/dL (7-18); CALCIUM 9.1 mg/dL (8.5-10.1); CREATININE 1.2 mg/dL (0.55-1.3); TOT PROT 6.5 g/dl (6.4-8.2)
--- NOTE | 2019-05-03 11:36 | PDOC ---
Attending Attestation - Resident Resident Name: Joyce Carrillo - ED Attending Attestation I have performed the following: I have examined & evaluated the patient, The case was reviewed & discussed with the resident, I agree w/resident's findings & plan, Exceptions are as noted - HPI HPI: 05/03/19 11:35 48 years old past medical history significant for hypertension and anxiety presents with mild nonexertional chest tightness which patient has had before in the context of panic attacks - Physicial Exam PE: 05/03/19 11:35 Vitals: Triage Vital signs reviewed General Appearance: No acute distress, well nourished well developed, Head: Atraumatic, Cardiac: Regular rate and rhythym, no murmurs, no rubs, no gallops, Lungs: Clear to auscultation bilateral, good air movement bilaterally, Abdomen: Soft, non distended, normal bowel sounds, non tender to palpation Extremities: Full range of motion to all extremities, no cyanosis, clubbing, or edema Skin: Warm and dry, no rashes or lesions, no rash, no petechiae Psych: Normal mood, normal affect - Medical Decision Making 05/03/19 11:35 Heart score 2 completely asymptomatic at this time troponin negative low suspicion for ACS offered patient second troponin but patient says she feels fine this is typical with her previous panic attack she will return to the ED for any returning symptoms or for any concerns Findings, the need for follow-up and strict return instructions discussed with patient. Discharge - Discharge Information Problems reviewed: Yes Clinical Impression/Diagnosis: Atypical chest pain Condition: Fair Disposition: HOME - Admission No - Follow up/Referral - Patient Discharge Instructions Patient Printed Discharge Instructions: DI for Atypical Chest Pain Additional Instructions: Follow-up with your doctor within 1 week. Return to the ED for any severe worsening symptoms or for any concerns. - Post Discharge Activity Heart Score/ECG Review - History History: Slightly suspicious - Electrocardiogram EKG: Normal - Age Age: 45-65 - Risk Factors Risk Factors Heart Score: Yes Hx Hypertension Based on the list above the patient has:: 1-2 risk factors - Troponin Troponin: </= normal limit - Score Heart Score - Total: 2 - ECG Impressions Comment:: 05/03/19 11:[address] elevations no T wave inversions Interpreted by me.
[2019-05-03 11:53] VITALS: BP 122/85; PULSE 81; TEMP 97.4
== END 2019-05-03 11:56 | disposition home or self-care (01) ==
LOC: JER 08:22
DX: R07.89 Other chest pain (principal); I10 Essential (primary) hypertension; F41.9 Anxiety disorder, unspecified; Z88.0 Allergy status to penicillin
CPT/HCPCS: 36415; 71046-TC-FY; 80053; 84484; 85025; 93005; 93010; 99285-25